=== PATIENT | female | born 1955 | race Caucasian/White ===

== ENCOUNTER 2022-01-02 08:44 | Day surgery (SDC) | payer MEDICARE, BC ==
[~2022-01-02] VITALS: Ht 157.5 cm; Wt 100.6 kg
[~2022-01-02 08:44] MED LIST: AMLO10TA PO; AZEL1SPR3 NARES; B-12100010 PO; BAYE81TA10 PO; CALTCHW6 PO; CALTTAB6 PO; CETI10CA13 PO; COEN100T PO; CYAN500T3 PO; D3 H2000 PO; FLAX100012 PO; FLON1SPR; FLON50SP; FOLI1TAB11 PO; FOLI400T13 PO; LR 1,000 ML IV ONE; MONT10TA97 PO; PRAV40TA2 PO; PURE500C5 PO; SFHHYD1CR TOP; SYMB16INH INH; SYNT137T7 PO; SYNT150T PO; TELM1TAB37 PO; VALA1TAB5 PO; VITA100093 PO; VITA100T29 PO
[2022-01-02] MEDS ORDERED: MIDAZOLAM INJ 2MG/2ML VIAL (J2250 PER 1MG) As Ordered ONE (11:19)
[2022-01-02] MEDS ORDERED: fentaNYL 100 MCG/2 ML INJECTION As Ordered ONE (11:19)
[2022-01-02] MEDS ORDERED: propofoL 200 MG/20 ML VIAL As Ordered ONE (11:19)
[2022-01-02] MEDS ORDERED: LIDOCAINE 2% 100MG/5ML SDV (FOR ANES.) As Ordered ONE (11:19)
[2022-01-02] MEDS ORDERED: ROCURONIUM BROMIDE 50 MG/5 ML VIAL As Ordered ONE (11:20)
[2022-01-02] MEDS ORDERED: ONDANSETRON 4MG/2ML VIAL As Ordered ONE (11:20)
[2022-01-02] MEDS ORDERED: dexameTHASONE 4 MG/ML 1ML VIAL (J1100 PER 1MG) As Ordered ONE (11:20)
[2022-01-02] MEDS ORDERED: LIDOCAINE W/EPINEPHRINE 1% 20ML VIAL As Ordered ONE (11:49)
[2022-01-02] MEDS ORDERED: OXYMETAZOLINE 0.05% NASAL SPRAY (AFRIN) As Ordered ONE (11:50)
[2022-01-02] MEDS ORDERED: COCAINE 4% 4ML NASAL SOLUTION BTL As Ordered ONE (11:50)
[2022-01-02] MEDS ORDERED: SUGAMMADEX SODIUM 500 MG/5 ML VIAL (BRIDION) As Ordered ONE (12:51)
[2022-01-02] MEDS ORDERED: LR 1,000 ML IV SCH ×2 (13:35→13:40)
[2022-01-02] MEDS ORDERED: oxyCODONE 5MG TAB PO PRN (13:35)
[2022-01-02] MEDS ORDERED: ONDANSETRON 4MG/2ML VIAL IV PRN ×2 (13:35→13:40)
[2022-01-02] MEDS ORDERED: fentaNYL 100 MCG/2 ML INJECTION IV PRN (13:35)
[2022-01-02] MEDS ORDERED: MORPHINE 10 MG/ML 1ML VIAL IV PRN (13:40)
[2022-01-02] MEDS ORDERED: NORCO, ANEXSIA 5/325MG TABLET (HYDROcodone/ACETAMINOPHEN) PO PRN (13:40)
[2022-01-02 14:45] VITALS: BP 138/66
== END 2022-01-02 14:48 | disposition home or self-care (01) ==
LOC: M SDC 08:44
PROVIDERS: ATTEND Otolaryngology
DX: J34.2 Deviated nasal septum (principal); J34.3 Hypertrophy of nasal turbinates; I48.91 Unspecified atrial fibrillation; I10 Essential (primary) hypertension; Z88.2 Allergy status to sulfonamides; E03.9 Hypothyroidism, unspecified; E78.5 Hyperlipidemia, unspecified; G47.30 Sleep apnea, unspecified; Z79.82 Long term (current) use of aspirin; Z79.899 Other long term (current) drug therapy
CPT/HCPCS: 30140; 30520; 88300; C9046; J1100; J2250; J2405; J3010